=== PATIENT | female | born 1965 | race American Indian/Alaskan Native ===

== ENCOUNTER 2017-11-09 07:12 | Day surgery (SDC) | payer MEDICARE, MEDICAID ==
--- NOTE | 2017-11-09 08:08 | Anesthesia Day of Surgery ---
Anesthesia Day of Surgery - Day of Surgery Patient Examined: Yes Patient H&P Reviewed: Yes Patient is NPO: Yes Beta Blockers: No Cardiac Clearance: No Pulmonary Clearance: No
--- NOTE | 2017-11-09 08:09 | Anesthesia Consultation ---
Anesthesia Consult and Med Hx - Airway Anesthetic Teeth Evaluation: Good ROM Head & Neck: Adequate Mental/Hyoid Distance: Adequate Mallampati Class: Class III Intubation Access Assessment: Good - Pulmonary Exam CTA: No - Cardiac Exam Cardiac Exam: No Murmur - Pre-Operative Health Status ASA Pre-Surgery Classification: ASA3 Proposed Anesthetic Plan: MAC - Pulmonary Hx Smoking: Yes (Quit 1997) Hx Asthma: Yes ( A CHILD, rare inhaler use with acute URI's) - Cardiovascular System Hx Hypertension: Yes - Central Nervous System Hx Back Pain: Yes - Gastrointestinal Hx Gastroesophageal Reflux Disease: Yes (Mild ) - Endocrine Hx Renal Disease: No Hx Hypothyroidism: Yes (2002) - Other Systems Hx Cancer: No Hx Obesity: Yes (BMI= 58.1)
[2017-11-09] MEDS ORDERED: VERSED ONE (08:15)
[2017-11-09] MEDS ORDERED: DIPRIVAN 10 MG/ML IV ONE (08:15)
[2017-11-09] MEDS ORDERED: WATER FOR IRRIG STERILE IR ONE (08:59)
--- NOTE | 2017-11-09 09:56 | Operative Report ---
PREOPERATIVE DIAGNOSES: 1. Dyspepsia and abdominal pain. 2. Status post Radha-en-Y gastric bypass. POSTOPERATIVE DIAGNOSES: Dilated gastric pouch, dilated gastrojejunal anastomosis, same. PROCEDURE: Upper endoscopy. ANESTHESIA: MAC. COMPLICATIONS: None. BLEEDING: None. SPECIMENS: None. INDICATIONS: The patient is a 52-year-old female who is status post Radha-en-Y gastric [place] [address] Reyes. She has had weight regained as well as dyspepsia and intermittent abdominal pain. She wishes for revision. She is here for preoperative upper endoscopy. Informed consent was obtained. DESCRIPTION OF PROCEDURE: The patient was brought to the operating suite where she was placed in the left lateral decubitus position and underwent MAC anesthesia. A bite block was placed and a time-out was called. A standard adult gastroscope was inserted into the oropharynx, down the esophagus, into the gastric pouch. Her gastric pouch was noted to be dilated at 100 mL total volume with a dilated gastrojejunal anastomosis at 30 mm in total diameter. There were no ulcers as well as or other lesions. She did have evidence of gastroenteric reflux as well. The air was then insufflated. Gastroscope was removed. The patient tolerated the procedure well and was transferred to the PACU in stable condition. [facility]# [id number] SHARON/TARA
[2017-11-09 09:57] VITALS: BP 126/77
[2017-11-09] MEDS ORDERED: NACL 0.9% 1000 ML 1,000 ML IV SCH (10:00)
== END 2017-11-09 07:13 | disposition home or self-care (01) ==
LOC: GIO 07:12
PROVIDERS: ATTEND Specialist
DX: K21.9 Gastro-esophageal reflux disease without esophagitis (principal); K30 Functional dyspepsia; K95.89 Other complications of other bariatric procedure; E03.9 Hypothyroidism, unspecified; I10 Essential (primary) hypertension; J45.909 Unspecified asthma, uncomplicated; E66.9 Obesity, unspecified; Z68.43 Body mass index [BMI] 50.0-59.9, adult; Z79.899 Other long term (current) drug therapy; Z87.891 Personal history of nicotine dependence; Z98.890 Other specified postprocedural states; Z90.49 Acquired absence of other specified parts of digestive tract; Z98.51 Tubal ligation status; Z88.8 Allergy status to other drugs, medicaments and biological substances; Z98.891 History of uterine scar from previous surgery; Z91.81 History of falling
CPT/HCPCS: 43235; 81025; J2250; J2704; J7030